=== PATIENT | female | born 1990 | race Caucasian/White ===

== ENCOUNTER → 2021-04-01 | Day surgery (SDC) | payer OTHER ==
[~2021-04-01] VITALS: Ht 167.6 cm; Wt 65.3 kg
[~2021-04-01] MED LIST: CELEXA 20MG20 MG/TAB PO; MOTRIN 800800 MG/TAB PO; NORCO 325 MG-51 TAB PO; PERCOCET 325 MG1 TA2 PO; PRENATAL1 TA2 PO
[2021-04-01 13:05] VITALS: BP 129/76; PULSE 59; TEMP 97.6
[2021-04-01 13:09] VITALS: TEMP 97.6
[2021-04-01 13:20] VITALS: BP 132/81; PULSE 80
[2021-04-01 13:35] VITALS: BP 119/88; PULSE 82
--- NOTE | 2021-04-01 13:46 | NUR ---
1305: Patient arrived back into [facility]. Eating ice chips, tolerating well. No complaint of nausea/vomiting. Complaint of burning sensation in knee, patient states it is minimal. Vital signs stable. 1320: Vital signs stable. No complaint of nausea/vomiting or change in pain. Patient requesting water and toast. Tolerated well. 1335: Vital signs stable. No complaint of pain/nausea. Patient went to restroom via walker with stand by assist. 1340: Patient arrived back into the room. Got dressed independently. Went through discharge instructions. Questions answered, verbalized understanding to instructions. Removed IV, without complications. 1350: Patient stated mom was at patient entrance. Escorted patient to the entrance via wheelchair.
== END ==
LOC: SDCO 03-31 10:30
DX: S83.241A Other tear of medial meniscus, current injury, right knee, initial encounter (principal); M94.8X6 Other specified disorders of cartilage, lower leg; J45.909 Unspecified asthma, uncomplicated; F41.9 Anxiety disorder, unspecified; F32.9 Major depressive disorder, single episode, unspecified; F17.210 Nicotine dependence, cigarettes, uncomplicated; Z20.822 Contact with and (suspected) exposure to COVID-19; Z79.899 Other long term (current) drug therapy; Z82.49 Family history of ischemic heart disease and other diseases of the circulatory system; Z80.9 Family history of malignant neoplasm, unspecified
CPT/HCPCS: J0690; J1100; J1885; J2405; J2704; J3010; J7120